=== PATIENT | female | born 1940 | race Caucasian/White ===

== ENCOUNTER 2018-02-09 00:48 | Inpatient (IN) | payer OTHER ==
[~2018-02-09] VITALS: Ht 157.5 cm; Wt 79.4 kg
[2018-02-09] MEDS ORDERED: LOVASTATIN40 M1 PO (08:59)
[2018-02-09] MEDS ORDERED: PANTOPRAZOLE SO40 M1 PO (09:00)
[2018-02-09] MEDS ORDERED: CITALOPRAM HBR20 MG PO (09:00)
[2018-02-09] MEDS ORDERED: SYNTHROID100 MCG PO (09:01)
[2018-02-09] MEDS ORDERED: TRIAMTERENE-HC1 EAC3 PO (09:02)
[2018-02-09] MEDS ORDERED: FELODIPINE ER2.5 M1 PO (09:03)
[2018-02-09] MEDS ORDERED: XANAX0.25 M1 PO ×2 (09:04)
[2018-02-09] MEDS ORDERED: POTASSIUM CHLO10 ME3 PO (09:05)
[2018-02-09] MEDS ORDERED: LOPRESSOR100 M1 PO (09:05)
[2018-02-09] MEDS ORDERED: MOBIC15 M1 PO (09:06)
[2018-02-09] MEDS ORDERED: MULTIPLE VITAM1 EACH PO (09:07)
[2018-02-09] MEDS ORDERED: CALTRATE 600 +1 EACH PO (09:07)
[2018-02-09] MEDS ORDERED: INTRINSI B12-F1 EACH PO (09:08)
[2018-02-09] MEDS ORDERED: OCUVITE ADULT1 EACH PO (09:08)
[2018-02-09] MEDS ORDERED: IRON325 M3 PO (09:09)
[2018-02-09] MEDS ORDERED: PERCOCET 5-3251 EACH PO (09:10)
[2018-02-09] MEDS ORDERED: TYLENOL ARTHRI650 M1 PO (09:11)
--- NOTE | 2018-02-09 10:33 | Operative Report ---
Operative/Inv Procedure Report Surgery Date: 02/09/18 Name of Procedure: Left total hip arthroplasty Pre-Operative Diagnosis: Left hip primary osteoarthritis Post-Operative Diagnosis: Same with final pathology pending Estimated Blood Loss: 150cc Surgeon/Web Content Editor: Lashon WATKINS,Rosie Kuo PA Anesthesia: block Implants: Luke secure fit femoral stem size 8 with a 127 neck angle Right Trident acetabulum size 52 36 +0 Biolox Drains: None Specimens: Femoral head and acetabular reamings Microbiology: Urine Complications: None Condition: Stable Operative Indication: Patient is a 78-year-old woman with gradually worsening symptoms of consistent with osteoarthritis over the past few years. She was treated conservatively for a period time with minimal improvement. Symptoms interfere with normal activities of daily living. Prior to her surgery she developed so much pain that she had difficulty even turning in bed getting up from a seated position. She was to proceed with total hip arthroplasty after risks, benefits and expeditions were discussed which included but were not limited to persistent hip pain, need for subsequent surgery, infection, DVT, GI blood loss or nerves, dislocation and leg length discrepancy as well as anesthesia risks Operative/Procedure Note Note: Patient was brought to the operating room and transferred to the operating table. Once under appropriate anesthesia the patient was placed into a right lateral decubitus position with left side up. All bony prominences well-padded. The left lower extremity was prepped and draped in standard fashion. Preoperative IV antibiotics were given prophylactically. Standard lateral incision was made for anticipated superior approach to the hip. The since incision was taken down sharply to the underlying fascia. The fascia was incised in line with the skin incision over the gluteus barry. The hip was internally rotated placed in the piriformis on tension. Performance is identified and reflected posteriorly. The retractor was placed in the interval between the gluteus minimus tendon and superior capsule. An inferior retractor was placed as well. A central portion of the posterior capsule was incised and reflected posteriorly for later repair. Superior and inferior portions of the capsule were excised. Hip was dislocated. Severe end-stage degenerative changes of the femoral head was noted. Femoral neck cut was then made based on preoperative templating and intraoperative measurements. The acetabulum was visualized. There was severe end-stage degenerative changes of the acetabulum as well. Remnants of the degenerative labral tissue were excised.. I then started reaming the size 45 and advanced to a size 51 for anticipated insertion of a size 52 acetabulum. I used a size 50 trial to confirm circumferential reaming. I was satisfied with this. Copious irrigation of the acetabular fossa followed and then the definitive size 52 acetabulum was impacted in place with the appropriate anteversion and forward flexion based on intraoperative anatomy findings, preoperative templating and using the [employer] tower. There was some bleeding in the inferior part of the hip. This was cauterized under direct vision. Excellent scratch fit with the acetabular component. 2 screws were placed in the standard fashion in the safe zone. The definitive liner was impacted in place and the locking mechanism was confirmed. A lap sponge was placed over the top of the acetabular fossa to protect the polyethylene during preparation of the femur. The femur was internally rotated 90 and forward flex about 60. I used a box osteotome to lateralize my insertion site. I then used hand reamers up to a size 8 followed by broaching to a size 8. A size 127 neck angle was chosen based on findings and preoperative templating. Trial reduction was attempted and the hip was found to be stable with forward flexion greater than 90 internal rotation and adduction. No sign of posterior instability. No sign of anterior instability or impingement with simultaneous extension and external rotation. Trial components were removed from the femur. Copious irrigation of the femoral canal followed. I then impacted the definitive size 8 femoral stem with a [address] Excellent scratch fit. I dried the trunion and placed the definitive 36+0 Biolox femoral head. Locking mechanism was confirmed. Hip was reduced and again the stability was confirmed. Copious irrigation followed. I then repaired the capsule with interrupted #1 Vicryl suture. Every level of closure was copiously followed by copious irrigation. The fascia was closed with interrupted interrupted #1 Vicryl suture. Subcutaneous tissues closed in 2 layers with 2-0 Vicryl and skin was closed with freda. Appropriate dressings were applied and patient was awakened and taken to recovery room in good condition. No intraoperative complications.. Blood loss was 150 cc Discharge Disposition: PACU
--- NOTE | 2018-02-09 13:43 | RADIOLOGY REPORT ---
EXAMINATION: XR HIP, LEFT CLINICAL INFORMATION: Status post left total hip replacement COMPARISON: None TECHNIQUE: Frontal view of the left hip. FINDINGS: The patient is status post total left hip arthroplasty with soft tissue changes and lateral cutaneous staple line seen over the hip. The prosthetic components are well-seated within the [place] bone with anatomic alignment seen. No hardware failure or [place] bone fracture is seen. Visualized portions of the left sacroiliac joint unremarkable. IMPRESSION: Anatomic alignment on single view postoperative left hip film.
[2018-02-09 14:00] VITALS: BP 118/64
--- NOTE | 2018-02-09 15:08 | Admission Core Measures ---
Acute Coronary Syndrome (CM) ACS Core Measures Acute Coronary Syndrome Diagnosis No Congestive Heart Failure (NEW) CHF Core Measures Congestive Heart Failure Diagnosis No Cerebrovascular Accident CVA Core Measures CVA/TIA Diagnosis No Venous Thromboembolism VTE Core Bubba (View Protocol) VTE Risk Factors Surgery No Mechanical VTE Prophylaxis d/t N/A MechProphylax Ordered No VTE Pharm Prophylaxis d/t NA PharmProphylax ordered Problem List As ranked by this Provider includes Assessment & Plan 1. Unilateral primary osteoarthritis, left hip HOME MEDS Home Med List Acetaminophen (Tylenol Arthritis) 650 MG TABLET.ER 2 TAB PO TWICE DAILY PAIN (Reported) Alprazolam (Xanax) 0.25 MG TABLET 1 TAB PO EVERY AM PRN ANXIETY (Reported) Alprazolam (Xanax) 0.25 MG TABLET 2 TAB PO EVERY JEFFREY PRN ANXIETY (Reported) C,E,Zinc,Copper 11/Wdqbc6l/Lut (Ocuvite Adult 50 Plus Softgel) 250 MG (90 MG-160 MG)-5 MG-1 MG CAPSULE 1 CAP PO DAILY SUPP (Reported) Calcium Carbonate/Vitamin D3 (Caltrate 600 + D Tablet) 600 MG-800 TABLET 1 TAB PO TWICE DAILY SUPP (Reported) Citalopram Hydrobromide (Citalopram HBr) 20 MG TABLET 1 TAB PO DAILY DEPRESSION (Reported) Felodipine (Felodipine ER) 2.5 MG TAB.ER.24H 1 TAB PO DAILY HEART HEALTH ( Reported) Ferrous Sulfate (IRON) 325 MG (65 MG IRON) TABLET 1 TAB PO DAILY SUPP ( Reported) Levothyroxine Sodium (Synthroid) 100 MCG TABLET 1 TAB PO DAILY THYROID ( Reported) Lovastatin 40 MG TABLET 1 TAB PO DAILY CHOLESTEROL (Reported) Meloxicam (Mobic) 15 MG TABLET 1 TAB PO DAILY PRN INFLAMMATION (Reported) Metoprolol Tartrate (Lopressor) 100 MG TABLET 1 TAB PO DAILY HEART (Reported) Multivit With Calcium,Iron,Min (Multiple Vitamins For Women) 1 EACH TABLET 1 TAB PO DAILY SUPP (Reported) Oxycodone HCl/Acetaminophen (Percocet 5-325 MG Tablet) 5 MG-325 MG TABLET 1 TAB PO EVERY 6 HRS PRN PAIN (Reported) Pantoprazole Sodium 40 MG TABLET.DR 1 TAB PO DAILY GI (Reported) Potassium Chloride 10 MEQ CAPSULE.ER 1 CAP PO DAILY SUPP (Reported) Triamterene/Hydrochlorothiazid (Triamterene-Hctz 37.5-25 MG Cp) 37.5 MG-25 MG CAPSULE 1 CAP PO DAILY HEART HEALTH (Reported) Vit B12/Intrins Fact/FA Cmb #2 (Intrinsi [id number] Tablet) 500 MCG-20 MG-800 MCG TABLET 2 TAB PO DAILY SUPP (Reported)
--- NOTE | 2018-02-09 15:13 | Patient Discharge Instructions ---
Discharge Instructions General Discharge Information You were seen/treated for: LEFT HIP OSTEOARTHRITIS You had these procedures: LEFT TOTAL HIP REPLACEMENT Watch for these problems: FEVER OVER 101 REDNESS AND SWELLING AROUIND WOUND DRAINAGE FROM WOUND UNABLE TO BEAR WEIGHT ON LEFT LEG CHEST PAIN OR SHORTNESS OF BREATH No bath, but you may shower: Yes Other wound care: DAILY DRY DRESSING CHANGE KEEP INCISION CLEAN AND DRY Special Instructions: YOU ARE BEING PRESCRIBED A NEW MEDICATION CALLED COUMADIN FOR DVT PROPHYLAXIS. YOU WILL NEED TO GET YOUR BLOOD DRAWN TWICE WEEKLY TO TITRATE THIS MEDICATION TO KEEP YOUR INR BETWEEN 2-2.5 Diet Continue normal diet: Yes Activity Activity Self Limited: Yes Activity Limited to: Weight bear as tolerated (WITH ROLLING WALKER) Acute Coronary Syndrome Inclusion Criteria At DC or during hospital stay patient has or had the following: ACS DIAGNOSIS No Discharge Core Measures Meds if any: Prescribed or Continued at Discharge Meds if any: NOT Prescribed or Continued at Discharge Congestive Heart Failure Inclusion Criteria At DC or during hospital stay patient has or had the following: CHF DIAGNOSIS No Discharge Core Measures Meds if any: Prescribed or Continued at Discharge Meds if any: NOT Prescribed or Continued at Discharge Cerebrovascular accident Inclusion Criteria At DC or during hospital stay patient has or had the following: CVA/TIA Diagnosis No Discharge Core Measures Meds if any: Prescribed or Continued at Discharge Meds if any: NOT Prescribed or Continued at Discharge Venous thromboembolism Inclusion Criteria VTE Diagnosis No VTE Type NONE VTE Confirmed by (Test) NONE Discharge Core Measures - Per Current guidelines, there needs to be overlap - treatment for the first 5 days of Warfarin therapy. - If discharged on Warfarin prior to 5 days of - overlap therapy, the patient will need to be - assessed for post discharge needs including - *Post discharge parental anticoagulation - *Warfarin and/or parental anticoagulation education - *Follow up date to check INR post discharge At least 5 days overlap therapy as Inpatient No Meds if any: Prescribed or Continued at Discharge Note: Overlap Therapy is Warfarin and Anticoagulant Meds if any: NOT Prescribed or Continued at Discharge
--- NOTE | 2018-02-09 15:17 | Surgical Discharge Summary ---
Visit Information Visit Dates Admission Date: 02/09/18 Discharge Date: 02/11/18 History of Present Illness Chief Complaint: LEFT HIP PAIN Medical History Blood Transfusion Hx: No Neurological: NONE EENT: NONE Cardiovascular: hypertension, hyperlipidemia Respiratory: NONE Gastrointestinal: GERD Hepatic: NONE Renal: NONE Musculoskeletal: osteoarthritis Psychiatric: anxiety, depression Endocrine: hypothyroidism Blood Disorders: NONE Cancer(s): NONE [employer] MANAGER/Reproductive: NONE History of MRSA: No History of VRE: No History of CDIFF: No Isolation History: Standard Influenza Vaccine: 01/24/17 Surgical History Pertinent Surgical History: appendectomy, TONSILLECTOMY OOPHORECTOMY L LEG i&D Psychosocial History Where Do You Live? Home Who Do You Live With? Patient/Self What is Your Primary Language? Bermudian Review of Systems: PER [facility] Hospital Course Course Attending Physician: Lashon WATKINS,[facility] Primary Care Physician: Seven WATKINS,[facility] Course: PT HAD AN ELECTIVE LEFT TOTAL HIP REPLACEMENT ON 02/09, SHE TOLERATED THE PROCEDURE WELL. POSTOPERATIVELY, SHE WAS TOLERATING A REGULAR DIET, VOIDING SPONTANEOUSLY, HER PAIN WAS WELL MANAGED AND SHE WAS AMBULATING WITH PHYSICAL THERAPY USING A ROILLING WALKER AND WAS CLEARED FOR DISCHARGE. DISCHARGE INSTRUCTIONS WERE REVIEWED WITH THE HER AND SHE WAS GIVEN INSTRUCTIONS TO FOLLOW -UP WITH DR BATES IN 2 WEEKS AND TO CALL SOONER WITH ANY QUESTIONS OR CONCERNS Complications: none Allergies: Coded Allergies: No Known Allergies (02/09/18) Significant Procedures: LEFT TOTAL HIP ARTHROPLASTY Disposition Summary Disposition Principal Diagnosis: LEFT HIP OA Additional Diagnosis: SP L REGINA Discharge Disposition: home health services Discharge Instructions General Discharge Information Code Status: Full Code Patient's Diet: regular as tolerated Patient's Activity: WBAT WITH ROLLING WALKER Follow-Up Instructions/Appts: staple removal around post-op day#14 (2 weeks) follow up with in 6 weeks Copies To: Seven WATKINS,[facility]
--- NOTE | 2018-02-09 15:30 | PN- Student ---
Subjective Subjective: Pt feels well after surgery. Says she is in no pain at the moment. Tolerating a regular diet with no nausea or vomiting. No CP, SOB, difficulty breathing, headache, dizziness, numbness or tingling. Objective Objective: Vitals: T= 95.9 Pulse=62 bpm RR=16 breaths/min DF=819/64 O2=95% General: Elderly woman, sitting up comfortably in bed, eating, NAD. Rodriguez in place with good output. Cardio: Regular rate and rhythm. no murmurs rubs or gallops. S1 S2. Pulm: Clear breath sounds in anterior and lateral lung [place]. No wheezes, rhonchi or rales. Extremities: Abductor pillow in place. Calves non-tender to palpation. Gross motor and sensation intact and equal in bilateral lower extremities. DP pulses appreciated. PT pulses not appreciated. 5/5 dorsi and plantar flexion bilaterally. Results Results: Microbiology 02/09 1048 URINE ROUT: Urine Culture - RECD Assessment/Plan Assessment: 78 year old female POD#0 s/p left total hip replacement. PMH including HTN, HLD, hypothyroidism, GERD, and anxiety. Post-operative pain is well controlled and vital signs are stable. Plan: Continue to monitor and control pain prn. Coumadin for DVT ppx. PT and INR check in am, will follow up. Ashley-op antibiotics, vancomycin. Rdoriguez to remain in place overnight, likely d/c in the morning. IVF overnight. Weight bearing as tolerated. Physical therapy to see patient. Regular diet. Encourage incentive spirometry use. Continue home medications. Discuss w/ Dr Alarcon
[2018-02-09 21:16] VITALS: BP 110/62
[2018-02-09 23:30] VITALS: BP 94/54
[2018-02-10 03:30] VITALS: BP 100/65
[2018-02-10 08:03] VITALS: BP 120/71
--- NOTE | 2018-02-10 08:26 | PN- Orthopedic ---
See Addendum Subjective Subjective: Patient sitting in bed, tolerating regular diet, no nausea. Patient complaining of pain 8 out of 10, his only received IV Tylenol. Encourage patient to use oxycodone for pain management. Patient has not been out of bed with physical therapy yet. Rodriguez still in place Denies chest pain shortness of breath or fever. Objective Vital Signs and I&Os Vital Signs Date Time Temp Pulse Resp B/P B/P Pulse O2 O2 Flow FiO2 Mean Ox Delivery Rate 02/10 0803 98.5 78 18 120/71 93 Room Air 02/10 0330 98.8 80 17 100/65 94 02/09 2330 98.3 92 17 94/54 94 02/09 2116 97.0 66 17 110/62 97 Room Air 02/09 2056 97.0 66 18 110/62 02/09 2008 Room Air 02/09 1500 97.1 02/09 1400 95.9 62 16 118/64 95 Room Air Intake & Output 02/10 1600 02/10 0800 02/10 0000 02/09 1600 02/09 0800 02/09 0000 Intake Total 1040 1030 Output Total 750 1250 Balance 290 -220 Intake, IV 800 550 Intake, Oral 240 480 Output, Urine 750 1250 Patient 175 lb Weight Weight Standing Scale Measurement Method Physical Exam: General- NAD Resperations- clear bialaterlly Cardiac-regular rate and rhythm Abdomen-soft nontender with positive bowel sounds Extremities-dressing is clean and dry, LEFT thigh is soft with no erythema, minimal tenderness around incision. Calves are soft bilaterally and non- tenderness. Distal sensory and motor function is intact. 2+ dorsalis pedis pulse bilaterally Current Medications: Current Medications Sig/Jacqui Start time Last Medication Dose Route Stop Time Status Admin Acetaminophen 1,000 MG Q8 02/09 1400 DC 02/10 IV 02/10 0601 0501 Acetaminophen 0 .STK-MED ONE 02/09 0848 DC PO Alprazolam 0.25 MG QAM PRN 02/09 1400 AC PO 02/16 1244 Alprazolam 0.5 MG QPM PRN 02/09 1400 AC PO 02/16 1244 Amlodipine Besylate 2.5 MG DAILY 02/10 09 AC PO Atorvastatin Calcium 10 MG 1700 02/09 1700 AC 02/09 PO 1657 Celecoxib 200 MG DAILY 02/10 0900 AC PO Citalopram 20 MG DAILY 02/10 0900 AC Hydrobromide PO Dexamethasone 0 .STK-MED ONE 02/09 0848 DC .ROUTE Docusate Sodium 100 MG BID 02/09 2100 AC 02/09 PO 205 Fentanyl Citrate 0 .STK-MED ONE 02/09 1018 DC .ROUTE Influenza Virus 0 .STK-MED ONE 02/09 205 DC Vaccine IM Influenza Virus 0.5 ML ONCE ONE 02/09 1545 DC 02/09 Vaccine IM 02/09 1546 5 Levothyroxine Sodium 0.1 MG DAILY AC 02/10 0700 AC 02/10 PO 0500 Metoprolol Tartrate 50 MG BID 02/09 2100 AC 02/09 PO 205 Midazolam HCl 0 .STK-MED ONE 02/09 1018 DC .ROUTE Morphine Sulfate 2 MG Q2P PRN 02/09 1400 AC IV Nystatin 1 STEPHANIE TID PRN 02/09 1615 AC 02/09 TOP 2055 Omeprazole 40 MG DAILY AC 02/10 0700 AC 02/10 PO 0500 Ondansetron HCl 4 MG Q6P PRN 02/09 1400 AC IV Oxycodone HCl 5 MG Q6P PRN 02/09 1300 AC PO Oxycodone HCl 0 .STK-MED ONE 02/09 0848 DC PO Polyethylene Glycol 17 GM DAILY 02/10 0900 AC PO Potassium Chloride 20 MEQ .[id number] 02/09 1400 DC 02/10 Dextrose/Sodium 1,000 ML IV 0501 Chloride Tranexamic Acid 0 .STK-MED ONE 02/09 1018 DC IV Triamterene/HCTZ 1 CAP DAILY 02/10 0900 AC PO Vancomycin HCl 1,000 MG Q12 02/09 2100 DC 02/09 Sodium Chloride 250 ML IV 02/09 Vancomycin HCl 1,000 MG DAILY 02/09 0900 DC Sodium Chloride 250 ML IV 02/10 0859 Warfarin Sodium 5 MG COUMADIN 1700 ONE 02/09 1700 DC 02/09 PO 02/09 1701 1657 Results Last 48 Hours of Labs: Laboratory Tests 02/10 0645 Chemistry Sodium Pending Potassium Pending Chloride Pending Carbon Dioxide Pending Anion Gap Pending BUN Pending Creatinine Pending BUN/Creatinine Ratio Pending Coagulation PT Pending INR Pending Hematology CBC w Diff Pending WBC Pending RBC Pending Hgb Pending Hct Pending MCV Pending MCH Pending MCHC Pending RDW Pending Plt Count Pending MPV Pending Assessment/Plan Assessment/Plan 78-year-old female with history of hypertension, hypothyroidism, hyperlipidemia, depression and GERD, now here status post left total hip arthroplasty postop day 1. In stable condition pain management PT- WBAT with rolling walker DVT PPX- COUMADIN, FU INR this morning and will titrate dose for this evening DC IVF DC Rodriguez FU AM labs Regular diet Regular home medications Encourage IS DC planning Dressing change Post-op day2 Core Measures Venous Thromboembolism VTE Risk Factors Surgery No Mechanical VTE Prophylaxis d/t N/A MechProphylax Ordered No VTE Pharm Prophylaxis d/t NA PharmProphylax ordered
[2018-02-10 09:50] VITALS: BP 110/55
[2018-02-10 09:50] LABS: PT 12.5 SEC (9.4-12.5)
[2018-02-10 10:02] LABS: ABSOLUTE BASOPHIL COUNT 0 /CUMM (0.0-0.2); ABSOLUTE EOSINOPHIL COUNT 0 /CUMM (0.0-0.7); ABSOLUTE GRANULOCYTE CT 10.1 /CUMM (1.4-6.5); ABSOLUTE MONOCYTE COUNT 0.9 /CUMM (0.10-0.60); BASOPHIL % 0 % (0.0-2.0); EOSINOPHIL % 0 % (0-5); HEMATOCRIT 27.9 % (37-47); MEAN CORPUSCULAR HGB CONC 33.8 G/DL (33.0-37.0); MEAN CORPUSCULAR VOLUME 91.5 FL (81.0-99.0); MEAN PLATELET VOLUME 8.3 FL (7.4-10.4); PLATELET COUNT 209 /CUMM (130-400); RBC DISTRIBUTION WIDTH 13.7 % (11.5-14.5); RED BLOOD CELL CT 3.05 /CUMM (4.20-5.40); WHITE BLOOD CELL COUNT 11.9 /CUMM (4.8-10.8)
[2018-02-10 10:36] LABS: GRANULOCYTE % 84.8 % (42.2-75.2)
[2018-02-10 21:48] VITALS: BP 120/64
[2018-02-11 07:03] VITALS: BP 121/68
--- NOTE | 2018-02-11 07:41 | PN- Orthopedic ---
Subjective Subjective: Reports some dizziness at times. Pain better controlled today. Tolerating diet. No shortness of breath. No chest pains. Voiding without difficulty. Her goal is to go home. Needs to clear stairs? Objective Vital Signs and I&Os Vital Signs Date Time Temp Pulse Resp B/P B/P Pulse O2 O2 Flow FiO2 Mean Ox Delivery Rate 02/11 703 99.5 74 20 121/68 93 Room Air 02/108 99.3 80 16 120/64 93 Room Air 02/10 2142 80 120/64 02/10 0950 98.3 76 20 110/55 95 Room Air 02/10 08 78 120/71 02/10 827 78 120/71 02/10 0803 98.5 78 18 120/71 93 Room Air Intake & Output 02/11 0802/11 0000 02/10 1600 02/10 0800 02/10 0000 02/09 1600 Intake Total 490 767 465 3054 1030 Output Total 800 700 382 824 8628 Balance -310 -90 150 290 -220 Intake, IV 10 10 0 800 550 Intake, Oral 480 600 500 240 480 Number 0 0 0 Bowel Movements Output, Urine 800 700 454 634 0586 Patient 175 lb Weight Weight Standing Scale Measurement Method Physical Exam: General - alert & oriented x 3. comfortable. no acute distress. Lungs - clear bilaterally. no w/r/r. Cardiac - s1s2. reg. Abdomen - soft. nontender. Extremities - warm bilaterally. left hip dressing changed. expected ecchymoses. incision well approximated with freda. no erythema or exudates. calves soft and nontender. nvi. athrombics active b/l. Current Medications: Current Medications Sig/Jacqui Start time Last Medication Dose Route Stop Time Status Admin Alprazolam 0.25 MG QAM PRN 02/09 1400 AC PO 02/16 1244 Alprazolam 0.5 MG QPM PRN 02/09 1400 AC PO 02/16 1244 Amlodipine Besylate 2.5 MG DAILY 02/10 09 AC 02/10 PO 08 Atorvastatin Calcium 10 MG 1700 02/09 1700 AC 02/10 PO 1612 Celecoxib 200 MG DAILY 02/10 09 AC 02/10 PO 0828 Citalopram 20 MG DAILY 02/10 09 AC 02/10 Hydrobromide PO 08 Docusate Sodium 100 MG BID 02/09 2100 AC 02/10 PO 214 Levothyroxine Sodium 0.1 MG DAILY AC 02/10 0700 AC 02/11 PO 0514 Metoprolol Tartrate 50 MG BID 02/09 2100 AC 02/10 PO 214 Morphine Sulfate 2 MG Q2P PRN 02/09 1400 AC IV Nystatin 1 STEPHANIE TID PRN 02/09 1615 AC 02/09 TOP 2056 Omeprazole 40 MG DAILY AC 02/10 0700 AC 02/11 PO 0514 Ondansetron HCl 4 MG Q6P PRN 02/09 1400 AC IV Oxycodone HCl 5 MG Q6P PRN 02/09 1300 AC 02/11 PO 0514 Patient Medication 1 ED ONE ONE 02/10 1815 DC Teaching ED 02/10 181 Polyethylene Glycol 17 GM DAILY 02/10 09 AC 02/10 PO 0827 Potassium Chloride 20 MEQ .[id number] 02/09 1400 DC 02/10 Dextrose/Sodium 1,000 ML IV 0501 Chloride Triamterene/HCTZ 1 CAP DAILY 02/10 0900 AC 02/10 PO 0828 Warfarin Sodium 5 MG COUMADIN 1700 ONE 02/10 1700 DC 02/10 PO 02/10 1701 1612 Warfarin Sodium 5 MG COUMADIN 1700 ONE 02/10 1700 CAN PO 02/10 1701 Results Last 48 Hours of Labs: Laboratory Tests 02/10 0645 Chemistry Sodium (137 - 145 mmol/L) 134 L Potassium (3.5 - 5.1 mmol/L) 3.9 Chloride (98 - 107 mmol/L) 101 Carbon Dioxide (22 - 30 mmol/L) 24 Anion Gap (5 - 16) 9 BUN (7 - 17 mg/dL) 10 Creatinine (0.5 - 1.0 mg/dL) 0.8 Estimated GFR (>60 ml/min) > 60 BUN/Creatinine Ratio (7 - 25 %) 12.5 Coagulation PT (9.4 - 12.5 SEC) 12.5 INR (0.90 - 1.19) 1.15 Hematology CBC w Diff NO MAN DIFF REQ WBC (4.8 - 10.8 /CUMM) 11.9 H RBC (4.20 - 5.40 /CUMM) 3.05 L Hgb (12.0 - 16.0 G/DL) 9.5 L Hct (37 - 47 %) 27.9 L MCV (81.0 - 99.0 FL) 91.5 MCH (27.0 - 31.0 PG) 31.0 MCHC (33.0 - 37.0 G/DL) 33.8 RDW (11.5 - 14.5 %) 13.7 Plt Count (130 - 400 /CUMM) 209 MPV (7.4 - 10.4 FL) 8.3 Gran % (42.2 - 75.2 %) 84.8 H Lymphocytes % (20.5 - 51.1 %) 8.0 L Monocytes % (1.7 - 9.3 %) 7.2 Eosinophils % (0 - 5 %) 0 Basophils % (0.0 - 2.0 %) 0 Absolute Granulocytes (1.4 - 6.5 /CUMM) 10.1 H Absolute Lymphocytes (1.2 - 3.4 /CUMM) 1.0 L Absolute Monocytes (0.10 - 0.60 /CUMM) 0.9 H Absolute Eosinophils (0.0 - 0.7 /CUMM) 0 Absolute Basophils (0.0 - 0.2 /CUMM) 0 Assessment/Plan Assessment/Plan This 78-year-old female with history of hypertension, hypothyroidism, hyperlipidemia, depression and GERD, POD#2 s/p left total hip arthroplasty pain controlled continue PT dressing changed f/u labs coumadin accordingly - dvt ppx bowel regime in place d/c planning for home with services ?to clear stairs prior to d/c home d/w Core Measures Venous Thromboembolism VTE Risk Factors Surgery No Mechanical VTE Prophylaxis d/t N/A MechProphylax Ordered No VTE Pharm Prophylaxis d/t NA PharmProphylax ordered
[2018-02-11] MEDS ORDERED: TYLENOL EXTRA500 M2 PO (08:41)
[2018-02-11] MEDS ORDERED: MIRALAX119 GM PO (08:41)
[2018-02-11] MEDS ORDERED: OXYCODONE HCL5 M1 PO (08:41)
[2018-02-11] MEDS ORDERED: DOCUSATE SODIU100 M3 PO (08:41)
[2018-02-11] MEDS ORDERED: COUMADIN5 M2 PO (08:41)
[2018-02-11 09:20] VITALS: BP 107/67
[2018-02-11 09:23] LABS: PT 13.8 SEC (9.4-12.5)
[2018-02-11 09:30] LABS: ABSOLUTE BASOPHIL COUNT 0 /CUMM (0.0-0.2); ABSOLUTE EOSINOPHIL COUNT 0.1 /CUMM (0.0-0.7); ABSOLUTE GRANULOCYTE CT 7.3 /CUMM (1.4-6.5); ABSOLUTE LYMPH COUNT 1.7 /CUMM (1.2-3.4); ABSOLUTE MONOCYTE COUNT 0.8 /CUMM (0.10-0.60); BASOPHIL % 0.3 % (0.0-2.0); EOSINOPHIL % 1.5 % (0-5); GRANULOCYTE % 73.6 % (42.2-75.2); HEMATOCRIT 30.3 % (37-47); MEAN CORPUSCULAR HGB 30.7 PG (27.0-31.0); MEAN CORPUSCULAR HGB CONC 33.3 G/DL (33.0-37.0); MEAN PLATELET VOLUME 8.3 FL (7.4-10.4); PLATELET COUNT 234 /CUMM (130-400); RBC DISTRIBUTION WIDTH 14.1 % (11.5-14.5); WHITE BLOOD CELL COUNT 9.9 /CUMM (4.8-10.8)
== END 2018-02-11 13:05 | disposition home health service (06) | DRG 470 ==
LOC: 2NB 00:48 → SDA 00:48 → ENRESERV 13:06 → ENTRNSPT 13:41 → EDTRNSPTSTS 13:47 → EDTRNSPT 13:47 → 2NB 13:55 → CMPTRNSPT 14:02 → ENTRNSPT 02-11 12:35 → EDTRNSPT 02-11 13:05 → EDTRNSPTSTS 02-11 13:05 → 2NB 02-11 13:05 → CMPTRNSPT 02-11 13:29
PROVIDERS: Physician Assistant; Physician Assistant Surgical
PROC: 0SRB04A Replacement of Left Hip Joint with Ceramic on Polyethylene Synthetic Substitute, Uncemented, Open Approach (ICD-10-PCS; principal; 2018-02-09)
DX: M16.12 Unilateral primary osteoarthritis, left hip (principal); I10 Essential (primary) hypertension; E78.5 Hyperlipidemia, unspecified; F32.9 Major depressive disorder, single episode, unspecified; E03.9 Hypothyroidism, unspecified
CPT/HCPCS: 2NBSP; 36415; 36592; 73501; 82436; 87086; 88304; 97110-GO; 97116-GO; 97161-GP; 97530-GO; C1713; J0131; J1100; J1815; J2405; J3370; J7040; J7042; Q2036